=== PATIENT | male | born 1975 | race Caucasian/White ===

== ENCOUNTER 2025-01-01 14:53 | Emergency (ER) | payer SELFPAY ==
[2025-01-01] VITALS (10 sets, daily range): BP systolic 137–160; BP diastolic 79–88; PULSE 66–97; TEMP 36.4; O2SAT 96–100; BMI 27.1
[2025-01-01] MEDS: KETOROLAC TROMETHAMINE 30 MG/ML VIAL IVP (15:44)
--- NOTE | 2025-01-01 16:01 | ED.GENADUL1 ---
HPI HPI - General Adult General Chief complaint: Extremity Injury, Upper Stated complaint: POSSIBLE DISLOCATED SHOULDER Time Seen by Provider: 01/01/25 15:08 Source: patient Mode of arrival: walk-in Limitations: no limitations History of Present Illness HPI narrative: Patient 49-year-old male is coming to the ER after he had injury to his right shoulder while he was shoveling while he is at home, patient had a history of previous fracture of his head of the humerus and he mentioned that he never had dislocation before He is complaining of pain with the right shoulder and there is a obvious deformity with limitation of movement Related Data Previous Rx's ?Medication ?Instructions ?Recorded diclofenac sodium 75 mg 75 mg PO BID PRN pain #20 tabs 01/01/25 tablet,delayed release Allergies Allergy/AdvReac Type Severity Reaction Status Date / Time No Known Drug Allergies Allergy Verified 01/01/25 15:07 Opioid HPI Opioid Management Most Recent Opioid Data: Last Pain Scale 6 01/01/25 16:43 01/01/25 Last JAN Pain Assessment 01/01/25 16:43 Review of Systems ROS Status of ROS 10 or more systems reviewed and unremarkable except as noted in history and below PFSH PFSH Social History Little interest or pleasure in doing things: not at all Feeling down, depressed, or hopeless: not at all Exam Narrative Exam Narrative: Nurses notes and vital signs reviewed and patient is not hypoxic. Right upper extremity exam; the patient have obvious deformity of the right shoulder with a limitation of the movement. The patient have a good radial pulse and normal sensation General: Well-appearing and in no apparent distress. Skin: Warm, dry, no pallor noted. No rash. Head: Normocephalic, atraumatic. Neck: Supple, non-tender. Cardiovascular: Regular Rate and Rhythm without murmur, gallop or rub. Respiratory: No accessory muscle use or respiratory distress. Lungs are clear to auscultation, no wheezing, rales or rhonchi Chest Wall: no tenderness Constitutional Vital Signs, click to edit/add: Last Vital Signs Temp 97.6 F 01/01/25 15:03 Pulse 74 01/01/25 16:31 Resp 18 01/01/25 16:31 BP 158/88 H 01/01/25 16:31 Pulse Ox 100 01/01/25 16:31 O2 Del Method Room Air 01/01/25 15:03 O2 Flow Rate 2 01/01/25 16:31 Course Vital Signs Vital signs: Vital Signs Temperature 97.6 F 01/01/25 15:03 Pulse Rate 66 01/01/25 15:03 Respiratory Rate 20 01/01/25 15:03 Blood Pressure 148/85 H 01/01/25 15:03 Pulse Oximetry 96 01/01/25 15:03 Oxygen Delivery Method Room Air 01/01/25 15:03 Temperature 97.6 F 01/01/25 15:03 Pulse Rate 74 01/01/25 16:31 Respiratory Rate 18 01/01/25 16:31 Blood Pressure 158/88 H 01/01/25 16:31 Pulse Oximetry 100 01/01/25 16:31 Oxygen Delivery Method Room Air 01/01/25 15:03 Oxygen Delivery Flow Rate 2 01/01/25 16:31 Medical Decision Making MDM Narrative Medical decision making narrative: Procedural Sedation Indication: Right shoulder dislocation reduction Contraindications: None Last p.o.: Few hours ago he had some water Airway Assessment: No major abnormalities Verbal and written consent was obtained. Risks of sedation specifically aspiration, arrest, need for intubation, airway support, hospitalization, allergic reaction were discussed. Patient's n.p.o. status is acceptable for this emergency procedure. ASA class is acceptable for this emergency procedure. Appropriate labs and imaging were reviewed. Appropriate procedure and side was identified. Timeout was performed. Crash cart at the bedside. Advanced airway equipment at the bedside. Patient is on cardiac catheterization technologist, continuous pulse oximetry, end-tidal capnography. Medications: Etomidate 20 mg IV Patient tolerated the sedation well and there were no serious complications. Specifically the patient had no cardiac arrhythmia, no significant hypoxia, required no airway support, and returned to baseline. Total Intraservice time spent providing moderate sedation: 20 minutes The patient had a bedside moderate sedation reduction of the right shoulder that was successful Postreduction x-ray is adequate Patient was placed in a immobilizer provided with Voltaren for pain control Referred to orthopedic as outpatient The patient is to follow up with primary care physician in next 2-3 days or to return to the emergency department should any of the signs or symptoms worsen or new symptoms develop. The patient agrees with the following Diagnosis and Treatment plan and the patient will be discharged home. Discharge Plan Discharge Chief Complaint: Extremity Injury, Upper Clinical Impression: Closed dislocation of right shoulder Patient Disposition: Home, Self-Care Time of Disposition Decision: 17:14 Condition: Good Prescriptions / Home Meds: New diclofenac sodium 75 mg tablet,delayed release (DR/EC) 75 mg PO BID PRN (Reason: pain ) Qty: 20 0RF Print Language: Kinyarwanda Instructions: Shoulder Dislocation (ED), Moderate Sedation (ED) Referrals: RIGO STRATTON [Primary Care Provider] - 1 week Juan Osborn MD [Physician] - 1 week
--- NOTE | 2025-01-01 16:10 | ECG_ITS ---
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
[2025-01-01] MEDS: ETOMIDATE 20 MG/10 ML VIAL IVP (16:23)
--- NOTE | 2025-01-01 16:36 | PC.NURSE ---
1620 - MANIPULATION OF L SHOULDER WITH DR BERUMEN COMPLETED AT THIS TIME. RT AT BEDSIDE. VS WNL. ETOMODATE IV ADMINISTERED PER JAN FOR SEDATION. PT TOLERATED WELL. PT PLACED IN SLING AND SWATHE WRAP.
--- NOTE | 2025-01-01 16:37 | PC.NURSE ---
1630 - PT NOW AWAKE AND ALERT. C/O R SHOULDER PAIN, INFORMED DR BERUMEN. VS REMAIN WNL. WARM BLANKET GIVEN
--- NOTE | 2025-01-01 16:39 | PC.NURSE ---
PT WAS SHOVELING DIRT AND FELT A POP IN R SHOULDER. OBVIOUS DEFORMITY.
[2025-01-01] MEDS: TRAMADOL HCL 50 MG TABLET PO (16:43)
== END 2025-01-01 17:25 | disposition home or self-care (01) ==
PROVIDERS: Emergency Provider Emergency Medicine; PCP Family Medicine
DX: S43.004A Unspecified dislocation of right shoulder joint, initial encounter (principal); X50.9XXA Other and unspecified overexertion or strenuous movements or postures, initial encounter
CPT/HCPCS: 23650; 73030; 93005; 96374; 96375; 99152; 99285; J1885